=== PATIENT | male | born 1970 | race Caucasian/White ===

== ENCOUNTER 2022-08-07 20:24 | Emergency (ER) | payer SELFPAY ==
[2022-08-07 20:37] VITALS: BP 148/89; PULSE 103; RESP 20; TEMP 97.1; BMI 38.9
== END 2022-08-07 21:20 | disposition left against medical advice (07) ==
LOC: JER 20:24
DX: R42 Dizziness and giddiness (principal); R94.31 Abnormal electrocardiogram [ECG] [EKG]
CPT/HCPCS: 93005; 93010; 99283-25